=== PATIENT | female | born 1965 | race American Indian/Alaskan Native ===

== ENCOUNTER 2018-02-28 22:30 | Inpatient (IN) | payer OTHER ==
[2018-02-28] MEDS ORDERED: DUONEB *Not for PRN Use IH ONE (22:55)
--- NOTE | 2018-03-01 00:11 | XRay Report ---
FINAL REPORT EXAM: XR CHEST ROUTINE 2V HISTORY: chest congestion TECHNIQUE: Frontal and lateral views of the chest were obtained. PRIORS: None. FINDINGS: There are no focal consolidations to suggest pneumonia. Increased perihilar markings and slight increased lung volumes. No pneumothorax or large pleural effusion. Cardiac silhouette and mediastinal structures are unremarkable. No acute osseous abnormality identified. IMPRESSION: Radiographic findings suggestive of a viral process or reactive airway disease. No focal consolidation or pleural effusion.
[2018-03-01] MEDS ORDERED: DUONEB *Not for PRN Use IH ONE (04:30)
[2018-03-01] MEDS ORDERED: DECADRON IV ONE (04:30)
[2018-03-01 05:05] LABS: Basophils % (Auto) 0.7 % (0.0-1.8); Eosinophils # (Auto) 0.1 K/mm3 (0.0-0.4); Eosinophils % (Auto) 2.4 % (0.0-4.3); Hematocrit 37.9 % (30.3-42.9); Hemoglobin 12.9 gm/dl (10.1-14.3); Lymphocytes # (Auto) 1.7 K/mm3 (1.2-5.4); Lymphocytes % (Auto) 35.1 % (13.4-35.0); Mean Corpuscular HGB Conc 34 % (30-34); Mean Corpuscular Hemoglobin 29 pg (28-32); Mean Corpuscular Volume 85 fl (79-97); Monocytes # (Auto) 0.4 K/mm3 (0.0-0.8); Monocytes % (Auto) 9.3 % (0.0-7.3); Platelet Count 169 K/mm3 (140-440); Red Blood Count 4.44 M/mm3 (3.65-5.03); Red Cell Distribution Width 13.9 % (13.2-15.2)
[2018-03-01 05:23] LABS: INR 0.94 (0.87-1.13); Partial Thromboplastin Time 24.9 Sec. (24.2-36.6)
[2018-03-01 05:29] LABS: Alanine Aminotransferase 15 units/L (7-56); Albumin 3.9 g/dL (3.9-5); BUN/Creatinine Ratio 16; Blood Urea Nitrogen 11 mg/dL (7-17); Calcium 9.4 mg/dL (8.4-10.2); Hemolysis Index 5
[2018-03-01] MEDS ORDERED: PROVENTIL IH ONE ×2 (05:54→09:48)
[2018-03-01] MEDS ORDERED: MAGNESIUM SULFATE 2GM/50ML 2 GM/50 ML BAG IV ONE (05:54)
--- NOTE | 2018-03-01 06:02 | Emergency Department Report ---
<MAKEDA CRUZ - Last Filed: 03/01/18 07:51> ED Shortness of Breath HPI - General Chief Complaint: Dyspnea/Respdistress Stated Complaint: MATT Time Seen by Provider: 03/01/18 04:26 Source: patient Mode of arrival: Ambulatory Limitations: No Limitations - History of Present Illness Initial Comments: Patient is a 53-year-old -[place] female who presents for dyspnea respiratory distress cough and congestion worsening over the past 3 days with developing PND and activity intolerance wheezing not improving with albuterol inhaler there is no edema however patient cannot tolerate lying flat there is no nausea vomiting no back pain there's been no fall injury or trauma patient presented tonight as wheezing has become audible which cause greater concern. MD Complaint: shortness of breath, cough Onset/Timin -: days(s) Severity: moderate Pain Scale: 4 Consistency: constant Improves With: bronchodilators, upright position Worsens With: lying flat, exertion, coughing Known History Of: asthma, diabetes, other - Related Data Home Medications Medication Instructions Recorded Confirmed Last Taken Lisinopril/Hydrochlorothiazide 1 tab PO QDAY 03/01/18 03/01/18 02/28/18 [Zestoretic 20-25 mg] metFORMIN [Glucophage] 500 mg PO QDAY 03/01/18 03/01/18 02/28/18 Allergies Allergy/AdvReac Type Severity Reaction Status Date / Time No Known Allergies Allergy Verified 02/28/18 22:50 ED Review of Systems ROS: Stated complaint: MATT Other details as noted in HPI Constitutional: denies: chills, fever Eyes: denies: eye pain, eye discharge, vision change ENT: throat pain, congestion Respiratory: cough, orthopnea, shortness of breath, SOB with exertion, SOB at rest, wheezing. denies: stridor Cardiovascular: palpitations, dyspnea on exertion, paroxysmal nocturnal dyspnea Endocrine: no symptoms reported Gastrointestinal: denies: abdominal pain, nausea, diarrhea Genitourinary: denies: urgency, dysuria, discharge Musculoskeletal: denies: back pain, joint swelling, arthralgia Skin: denies: rash, lesions Neurological: denies: headache, weakness, paresthesias Psychiatric: denies: anxiety, depression Hematological/Lymphatic: denies: easy bleeding, easy bruising ED Past Medical Hx - Past Medical History Hx Hypertension: Yes Hx Diabetes: Yes - Surgical History Past Surgical History?: Yes Additional Surgical History: hysterectomy - Social History Smoking Status: Never Smoker Substance Use Type: None - Medications Home Medications: Home Medications Medication Instructions Recorded Confirmed Last Taken Type Lisinopril/Hydrochlorothiazide 1 tab PO QDAY 03/01/18 03/01/18 02/28/18 History [Zestoretic 20-25 mg] metFORMIN [Glucophage] 500 mg PO QDAY 03/01/18 03/01/18 02/28/18 History ED Physical Exam - General Limitations: No Limitations General appearance: alert, in no apparent distress - Head Head exam: Present: atraumatic, normocephalic - Eye Eye exam: Present: normal appearance, PERRL, EOMI Pupils: Present: normal accommodation - Expanded ENT Exam Expanded Mouth exam: Absent: trismus Throat exam: Positive: tonsillar erythema, tonsillomegaly. Negative: tonsillar exudate, R peritonsillar mass, L peritonsillar mass - Neck Neck exam: Present: full ROM. Absent: tenderness, meningismus, lymphadenopathy , thyromegaly - Expanded Neck Exam Expanded Neck exam: Absent: tenderness, midline deformity, anterior neck swelling, thyroid mass, carotid bruit, tracheal deviation - Respiratory Respiratory exam: Present: wheezes, rhonchi, chest wall tenderness, decreased breath sounds (bilat bases ) - Cardiovascular Cardiovascular Exam: Present: normal rhythm, tachycardia, normal heart sounds - GI/Abdominal GI/Abdominal exam: Present: soft. Absent: tenderness, rigid, bruit, hernia - Rectal Rectal exam: Present: deferred - Extremities Exam Extremities exam: Present: normal inspection - Back Exam Back exam: Present: normal inspection - Neurological Exam Neurological exam: Present: alert, oriented X3 - Psychiatric Psychiatric exam: Present: normal affect, normal mood - Skin Skin exam: Present: warm, dry, intact, normal color. Absent: rash ED Course Vital Signs 02/28/18 02/28/18 03/01/18 22:36 22:50 04:36 Temperature 99.4 F 99.4 F Pulse Rate 103 H 101 H 91 H Pulse Rate [ Anterior Bilateral Throughout] Respiratory 20 16 Rate Respiratory Rate [Anterior Bilateral Throughout] Blood Pressure 235/99 166/85 O2 Sat by Pulse 99 97 Oximetry 03/01/18 03/01/18 03/01/18 04:46 05:00 05:16 Temperature Pulse Rate 77 75 82 Pulse Rate [ Anterior Bilateral Throughout] Respiratory 13 14 17 Rate Respiratory Rate [Anterior Bilateral Throughout] Blood Pressure 189/83 189/83 189/83 O2 Sat by Pulse 100 100 100 Oximetry 03/01/18 03/01/18 03/01/18 05:30 05:46 06:00 Temperature Pulse Rate 84 86 85 Pulse Rate [ Anterior Bilateral Throughout] Respiratory 12 15 17 Rate Respiratory Rate [Anterior Bilateral Throughout] Blood Pressure 189/83 189/83 154/69 O2 Sat by Pulse 100 100 99 Oximetry 03/01/18 03/01/18 03/01/18 06:16 07:00 07:16 Temperature Pulse Rate 80 90 98 H Pulse Rate [ Anterior Bilateral Throughout] Respiratory 13 17 18 Rate Respiratory Rate [Anterior Bilateral Throughout] Blood Pressure 189/83 154/69 154/69 O2 Sat by Pulse 96 98 99 Oximetry 03/01/18 03/01/18 03/01/18 07:34 08:35 08:46 Temperature Pulse Rate Pulse Rate [ Anterior Bilateral Throughout] Respiratory 12 Rate Respiratory Rate [Anterior Bilateral Throughout] Blood Pressure 154/69 168/85 168/85 O2 Sat by Pulse 98 93 99 Oximetry 03/01/18 03/01/18 03/01/18 09:00 09:16 09:30 Temperature Pulse Rate Pulse Rate [ Anterior Bilateral Throughout] Respiratory 19 18 10 L Rate Respiratory Rate [Anterior Bilateral Throughout] Blood Pressure 143/73 168/85 168/85 O2 Sat by Pulse 97 95 92 Oximetry 03/01/18 03/01/18 03/01/18 09:46 09:59 10:00 Temperature Pulse Rate Pulse Rate [ 102 H 102 H Anterior Bilateral Throughout] Respiratory 17 9 L Rate Respiratory 18 18 Rate [Anterior Bilateral Throughout] Blood Pressure 143/73 139/76 O2 Sat by Pulse 98 100 Oximetry 03/01/18 03/01/18 10:16 10:30 Temperature Pulse Rate 96 H Pulse Rate [ Anterior Bilateral Throughout] Respiratory 23 12 Rate Respiratory Rate [Anterior Bilateral Throughout] Blood Pressure 139/76 139/76 O2 Sat by Pulse 97 97 Oximetry - Reevaluation(s) Reevaluation #1: dodelb x 2, 03/01/18 4:08 ED Medical Decision Making - Lab Data Result diagrams: 03/01/18 04:55 03/01/18 04:55 history of every Laboratory Tests 03/01/18 03/01/18 03/01/18 04:55 04:55 04:55 WBC 4.8 RBC 4.44 Hgb 12.9 Hct 37.9 MCV 85 MCH 29 MCHC 34 RDW 13.9 Plt Count 169 Lymph % (Auto) 35.1 H Johnston % (Auto) 9.3 H Eos % (Auto) 2.4 Baso % (Auto) 0.7 Lymph # 1.7 Johnston # 0.4 Eos # 0.1 Baso # 0.0 Seg Neutrophils % 52.5 Seg Neutrophils # 2.5 PT 13.0 INR 0.94 APTT 24.9 D-Dimer Sodium 136 L Potassium 4.0 Chloride 94.8 L Carbon Dioxide 29 Anion Gap 16 BUN 11 Creatinine 0.7 Estimated GFR > 60 BUN/Creatinine Ratio 16 Glucose 222 H Calcium 9.4 Magnesium Total Bilirubin 0.30 AST 15 ALT 15 Alkaline Phosphatase 98 Troponin T NT-Pro-B Natriuret Pep Total Protein 7.8 Albumin 3.9 Albumin/Globulin Ratio 1.0 03/01/18 03/01/18 03/01/18 04:55 04:55 04:55 WBC RBC Hgb Hct MCV MCH MCHC RDW Plt Count Lymph % (Auto) Johnston % (Auto) Eos % (Auto) Baso % (Auto) Lymph # Johnston # Eos # Baso # Seg Neutrophils % Seg Neutrophils # PT INR APTT D-Dimer 460 H Sodium Potassium Chloride Carbon Dioxide Anion Gap BUN Creatinine Estimated GFR BUN/Creatinine Ratio Glucose Calcium Magnesium 1.70 Total Bilirubin AST ALT Alkaline Phosphatase Troponin T < 0.010 NT-Pro-B Natriuret Pep 67.52 Total Protein Albumin Albumin/Globulin Ratio Symptoms - EKG Data EKG shows normal: sinus rhythm Rate: tachycardia - EKG Data When compared to previous EKG there are: previous EKG unavailable (NSTEMI ) - Radiology Data Radiology results: report reviewed, image reviewed Chest x-ray no infiltrates no opacities CTA is pending - Medical Decision Making Until his blood patient had neb treatments 5 , Decadron , 2 g of mag no improvement respirations 100% on room air at rest 89% with ambulation and activity chest x-ray clear. BNP on cold:67.5 D Dimer: 460: CTA pending, plan admit to hospitalist diagnosis shortness of breath asthma exacerbation category and bloody bowel movements. The weight thought . called at this time: [id number] will call back for patient handoff via Dr. Huber, discussed treatment plan with patient, patient verbalized agreement and understanding will same, pt is currentl a/o x 3 resting quitley with no resp distress is consultant surgery is 80 and emergency department basically Critical care attestation.: If time is entered above; I have spent that time in minutes in the direct care of this critically ill patient, excluding procedure time. ED Disposition Clinical Impression: SOB (shortness of breath), Asthma attacks lasting more than 24 hours Asthma exacerbation Qualifiers: Asthma severity: moderate Asthma persistence: persistent Qualified Code(s): J45.41 - Moderate persistent asthma with (acute) exacerbation Disposition: OP ADMIT IP TO THIS HOSP Is pt being admited?: Yes Does the pt Need Aspirin: No Condition: Stable Time of Disposition: 07:52 (awaiting hospitalist call back for hand off Dr Hidalgo) <DARLENE PRASAD - Last Filed: 03/05/18 18:56> ED Shortness of Breath HPI - History of Present Illness Quality: aching Context: recent URI Associated Symptoms: fever, cough Treatments Prior to Arrival: none - Related Data Home Oxygen Therapy: No ED Past Medical Hx - Family History Family history: hypertension ED Physical Exam - ENT ENT exam: Present: normal exam, normal orophraynx, mucous membranes moist - Expanded ENT Exam Expanded Ear exam: Present: normal external inspection Throat exam: Positive: normal inspection - Neurological Exam Neurological exam: Present: normal gait ED Course - Reevaluation(s) Reevaluation #2: 03/01/18 09:47 Patient remained stable. She is requesting a breathing treatment because she says she fell lately is phlegm stuck in her throat for albuterol ordered. Dr. Mcqueen on route to see patient. Vital signs are stable she is afebrile and she is still with widespread wheezing with some use of accessory muscle. He have to chest without any pulmonary embolism. Reevaluation #3: 03/01/18 11:[address] Hidalgo acquainted with the hospitalist and orders. She is comfortable and says she felt better after nebulizer treatment. Vital signs remained stable and she is afebrile. She still have been present for all lung galvin. Patient to be admitted to room 376. ED Medical Decision Making - Lab Data Result diagrams: 03/04/18 08:50 03/02/18 04:59 - Radiology Data CTA chest dictated by radiologist and report reviewed by myself and see final report. [facility] [address] [place] [address] Cat Scan Report Signed Patient: ALDA COLVIN MR#: [id number] : 1965 Acct:[id number] Age/Sex: 53 / F ADM Date: 02/28/18 Loc: ED Attending Dr: Ordering Physician: MAKEDA CRUZ NP Date of Service: 03/01/18 Procedure(s): CT angio chest Accession Number(s): [id number] cc: MAKEDA CRUZ NP CTA chest: History: Shortness of breath, elevated d-dimer. Findings: There is no endobronchial lesion identified. There is a mediastinal 2 cm mass at the aorticopulmonary window probably a lymph node or a cyst. No evidence of aortic aneurysm or pulmonary embolism. No pleural or pericardial effusion. Faint groundglass ill-defined density measuring 4 cm in diameter noted at the left lower lobe probably pneumonitis.. 1.2 cm diameter noncalcified nodule superior segment left lower lobe. Seen on series 3 image 86. Impression: No evidence of pulmonary embolism. Additional findings as detailed above. Transcribed By: PTP Dictated By: JUSTINO VIZCARRA MD Electronically Authenticated By: JUSTINO VIZCARRA MD Signed Date/Time: 03/01/18812 DD/ 5 TD/TT: 03/01/18812
--- NOTE | 2018-03-01 08:31 | Cat Scan Report ---
CTA chest: History: Shortness of breath, elevated d-dimer. Findings: There is no endobronchial lesion identified. There is a mediastinal 2 cm mass at the aorticopulmonary window probably a lymph node or a cyst. No evidence of aortic aneurysm or pulmonary embolism. No pleural or pericardial effusion. Faint groundglass ill-defined density measuring 4 cm in diameter noted at the left lower lobe probably pneumonitis.. 1.2 cm diameter noncalcified nodule superior segment left lower lobe. Seen on series 3 image 86. Impression: No evidence of pulmonary embolism. Additional findings as detailed above.
[2018-03-01] MEDS ORDERED: TYLENOL PO PRN (10:42)
[2018-03-01] MEDS ORDERED: SODIUM CHLORIDE FLUSH SYRINGE 10 ML IV PRN (10:42)
[2018-03-01] MEDS ORDERED: ZOFRAN IV PRN (10:42)
--- NOTE | 2018-03-01 10:51 | History and Physical Report ---
History of Present Illness Date of examination: 03/01/18 Date of admission: 03/01/18 Chief complaint: SOB, cough History of present illness: Patient is a 53-year-old -[place] female who has a history of asthma and diabetes mellitus, has not get any albuterol medications for the past 3 years started having cough with slight shortness of breath with past 3 days ago. This was associated with wheezing, progressively worsening shortness of breath. She took some [id number] medications with no improvement in symptoms. She then presented to the emergency department with respiratory distress and continues coughing. Bronchodilators were given with IV soda Medrol. Symptoms persisted. Blood sugar was found to be 222 in the emergency department. CT scan of the chest was unremarkable for any pulmonary embolism. BNP was normal at 67.5. Admission was therefore requested. Patient denies any fever. No chest pain. No nausea no vomiting. No chills. No orthopnea or PND. Past History Past Medical History: diabetes, other (asthma) Past Surgical History: hysterectomy, Other (breast reduction) Social history: denies: smoking, alcohol abuse, prescription drug abuse Family history: other (daughter with asthma) Medications and Allergies Allergies Allergy/AdvReac Type Severity Reaction Status Date / Time No Known Allergies Allergy Verified 02/28/18 22:50 Home Medications Medication Instructions Recorded Confirmed Last Taken Type Lisinopril/Hydrochlorothiazide 1 tab PO QDAY 03/01/18 03/01/18 02/28/18 History [Zestoretic 20-25 mg] metFORMIN [Glucophage] 500 mg PO QDAY 03/01/18 03/01/18 02/28/18 History Active Meds: Active Medications Acetaminophen (Tylenol) 650 mg PO Q4H PRN PRN Reason: Pain MILD(1-3)/Fever >100.5/NEELY Albuterol/Ipratropium (Duoneb *Not For Prn Use*) 1 ampul IH QIDRT [facility] Budesonide (Pulmicort) 0.5 mg IH Q12HRT [facility] Enoxaparin Sodium (Lovenox) 30 mg SUB-Q QDAY [facility] Levofloxacin/Dextrose (Levaquin 750mg/150ml) 750 mg in 150 mls @ 100 mls/hr IV Q24HR ALEX; Protocol Methylprednisolone Sodium (Succinate 80 mg/ Dextrose) 250 mls @ 12 mls/hr IV Q6H [facility] Stop: 03/01/18 16:59 Metformin HCl (Glucophage) 500 mg PO QDAY [facility] Miscellaneous Medication (Lisinopril/Hydrochlorothiazide [Zestoretic 20-25 Mg]) 1 tab PO QDAY [facility] Ondansetron HCl (Zofran) 4 mg IV Q8H PRN PRN Reason: Nausea And Vomiting Sodium Chloride (Sodium Chloride Flush Syringe 10 Ml) 10 ml IV BID [facility] Sodium Chloride (Sodium Chloride Flush Syringe 10 Ml) 10 ml IV PRN PRN PRN Reason: LINE FLUSH Review of systems Constitutional: Well Nouridhed and Well developed. Head: NC/ AT Eyes: Denies any visual impairments. No discharge from the eyes Nose: Denies any rhinorrhea or epistaxis Throats: Denies any post nasal drainage. Ears: Denies any hearing deficits Cardiovascular system: Denies any chest pain, shortness of breath, orthopnea, paroxysmal nocturnal dyspnea, or palpitation. Respiratory system: Has cough with shortness of breath, difficulty in breathing , wheezing, pleuritic chest pain, Gastrointestinal system: Denies any abdominal pain, nausea vomiting, hematemesis or melena. Neurological system: Denies any headache, slurred speech, facial droop, lateralizing weakness Genitalia system: Denies any dysuria, urinary frequency or urgency, urethral discharge Skin: No rashes, hyperpigmented spots. Hematological: Denies any cervical tenderness hemorrhages or petechia. Immunological: Denies any multiple septic spots, Lymphatic: Denies any generalized lymphadenopathy. Endocrine: Denies any polyuria, polydipsia, polyphagia. No heat or cold intolerance. Musculoskeletal system: No joint pain or swelling. Psych: No visual, tactile, auditory or hallucination Exam - Physical Exam Narrative exam: Constitutional: Obese well-developed. Head: Normocephalic atraumatic Eyes: Pupils are equal round and reactive to light Nose: No enlarged turbinates, no septal deviation. Mouth: Moist mucous membranes. Neck: Supple no thyromegaly. No bruit. No JVD Heart: Regular rate and rhythm, S1-S2 abnormal. No rubs murmurs or gallop Lungs: Decreased breath sounds bilaterally with expiratory wheeze. no rales or rhonchi Abdomen: Soft, nontender. Bowel sound are present. Extremities: No edema no cyanosis and no clubbing. Neuro: Alert oriented Oriented x3. No focal sensory or motor deficit. Skin: No rashes no hyperemic spots Psychiatry: Euthymic. Calm. - Constitutional Vitals: Temp Pulse Resp BP Pulse Ox 99.4 F 102 H 18 154/69 98 02/28/18 22:50 03/01/18 10:00 03/01/18 10:00 03/01/18 07:00 03/01/18 07:00 Results - Labs CBC & Chem 7: 03/01/18 04:55 03/01/18 04:55 Labs: Abnormal lab results 03/01/18 03/01/18 03/01/18 Range/Units 04:55 04:55 04:55 Lymph % (Auto) 35.1 H (13.4-35.0) % [place] % (Auto) 9.3 H (0.0-7.3) % D-Dimer 460 H (0-234) ng/mlDDU Sodium 136 L (137-145) mmol/L Chloride 94.8 L (98-107) mmol/L Glucose 222 H (65-100) mg/dL - Imaging and Cardiology Chest x-ray: report reviewed CT scan - chest: report reviewed Assessment and Plan Patient is a 53-year-old -[place] female who has a history of asthma and diabetes mellitus, has not get any albuterol medications for the past 3 years started having cough with slight shortness of breath with past 3 days ago. This was associated with wheezing, progressively worsening shortness of breath. She took some [id number] medications with no improvement in symptoms. She then presented to the emergency department with respiratory distress and continues coughing. Bronchodilators were given with IV soda Medrol. Symptoms persisted. Blood sugar was found to be 222 in the emergency department. CT scan of the chest was unremarkable for any pulmonary embolism. BNP was normal at 67.5. Admission was therefore requested. Patient denies any fever. No chest pain. No nausea no vomiting. No chills. No orthopnea or PND. - Asthma exacerbation Comments patient on DuoNeb, IV symmetrica, Pulmicort IV Solu-Medrol - Acute bronchitis Bronchodilators, Hydromet - Diabetes mellitus Obtain A1c High-dose sliding scale Consistent carbohydrate diet - Morbid obesity With management counseling -DVT prophylaxis with Lovenox and daily Pepcid - Disposition anticipate improvement in her cough wheezing and shortness of breath with bronchodilator treatment the next 2-3 days Weaned off IV Solu-Medrol on discharge home
[2018-03-01] MEDS ORDERED: LOVENOX SUB-Q SCH (11:00)
[2018-03-01] MEDS ORDERED: NON-FORMULARY (Lisinopril/Hydrochlorothiazide [Zestoretic 20-25 Mg] 1 TAB) PO SCH (11:00)
[2018-03-01] MEDS ORDERED: HCTZ ONE (11:50)
[2018-03-01] MEDS ORDERED: ZESTRIL ONE (11:51)
[2018-03-01] MEDS: LEVAQUIN 750MG/150ML 750 MG/150 ML BAG IV SCH (12:36)
[2018-03-01] MEDS: GLUCOPHAGE PO SCH (12:37)
[2018-03-01] MEDS: LOVENOX SUB-Q SCH (12:38)
[2018-03-01] MEDS ORDERED: PROVENTIL IH PRN (12:56)
[2018-03-01] MEDS ORDERED: SOLU MEDROL IV SCH (13:00)
[2018-03-01] MEDS ORDERED: D5W IV SCH (13:00)
[2018-03-01] MEDS: DUONEB *Not for PRN Use IH SCH ×3 (15:05→19:56)
[2018-03-01] MEDS: ZESTRIL PO SCH (15:27)
[2018-03-01] MEDS: HCTZ PO SCH (15:28)
[2018-03-01] MEDS: PULMICORT IH SCH ×2 (19:55)
[2018-03-01] MEDS: SODIUM CHLORIDE FLUSH SYRINGE 10 ML IV SCH (23:17)
[2018-03-01] MEDS: HumaLOG SUB-Q SCH (23:17)
[2018-03-02 05:15] LABS: Basophils % (Auto) 0.3 % (0.0-1.8); Hematocrit 37.5 % (30.3-42.9); Hemoglobin 12.6 gm/dl (10.1-14.3); Lymphocytes # (Auto) 0.6 K/mm3 (1.2-5.4); Lymphocytes % (Auto) 8.5 % (13.4-35.0); Mean Corpuscular HGB Conc 34 % (30-34); Mean Corpuscular Hemoglobin 29 pg (28-32); Mean Corpuscular Volume 85 fl (79-97); Monocytes # (Auto) 0.2 K/mm3 (0.0-0.8); Platelet Count 162 K/mm3 (140-440); Red Cell Distribution Width 13.8 % (13.2-15.2)
[2018-03-02] MEDS: DUONEB *Not for PRN Use IH SCH ×4 (07:26→19:49)
[2018-03-02] MEDS: PULMICORT IH SCH ×2 (07:26→19:49)
[2018-03-02 07:37] LABS: Alanine Aminotransferase 15 units/L (7-56); Albumin 3.8 g/dL (3.9-5); BUN/Creatinine Ratio 19; Blood Urea Nitrogen 15 mg/dL (7-17); Calcium 9.7 mg/dL (8.4-10.2); Hemolysis Index 1
[2018-03-02] MEDS: LOVENOX SUB-Q SCH (09:18)
[2018-03-02] MEDS: HCTZ PO SCH (09:19)
[2018-03-02] MEDS: GLUCOPHAGE PO SCH (09:19)
[2018-03-02] MEDS: SODIUM CHLORIDE FLUSH SYRINGE 10 ML IV SCH ×2 (09:20→21:41)
[2018-03-02] MEDS: ZESTRIL PO SCH (09:20)
[2018-03-02] MEDS: HumaLOG SUB-Q SCH ×4 (09:21→21:51)
[2018-03-02] MEDS: LEVAQUIN 750MG/150ML 750 MG/150 ML BAG IV SCH (09:22)
[2018-03-02] MEDS ORDERED: PNEUMOVAX 23 IM ONE (12:00)
--- NOTE | 2018-03-02 12:25 | Progress Note ---
Assessment and Plan Assessment and plan: - Acute Asthma exacerbation Cont. on DuoNeb, Solumedrol IV, Pulmicort - Acute bronchitis Bronchodilators, Levaquin - Diabetes mellitus F/U A1c High-dose sliding scale Consistent carbohydrate diet - Morbid obesity Weight management counseling -DVT/GI prophylaxis with Lovenox and daily Pepcid History Interval history: Pt still c/o cough and SOB Hospitalist Physical - Constitutional Vitals: Temp Pulse Resp BP Pulse Ox 97.9 F 68 18 120/56 98 03/02/18 05:29 03/02/18 09:20 03/02/18 05:29 03/02/18 05:29 03/02/18 05:29 General appearance: Present: no acute distress, well-nourished - EENT Eyes: Present: PERRL, EOM intact ENT: hearing intact, clear oral mucosa, dentition normal - Neck Neck: Present: supple, normal ROM - Respiratory Respiratory effort: normal Respiratory: bilateral: diminished, rhonchi, wheezing - Cardiovascular Rhythm: regular Heart Sounds: Present: S1 & S2. Absent: gallop, rub - Extremities Extremities: no ischemia, No edema, Full ROM - Abdominal General gastrointestinal: soft, non-tender, non-distended, normal bowel sounds - Integumentary Integumentary: Present: clear, warm, dry - Neurologic Neurologic: CNII-XII intact, moves all extremities Results - Labs CBC & Chem 7: 03/02/18 04:59 03/02/18 04:59 Labs: Laboratory Last Values WBC 6.9 K/mm3 (4.5-11.0) 03/02/18 04:59 RBC 4.40 M/mm3 (3.65-5.03) 03/02/18 04:59 Hgb 12.6 gm/dl (10.1-14.3) 03/02/18 04:59 Hct 37.5 % (30.3-42.9) 03/02/18 04:59 MCV 85 fl (79-97) 03/02/18 04:59 MCH 29 pg (28-32) 03/02/18 04:59 MCHC 34 % (30-34) 03/02/18 04:59 RDW 13.8 % (13.2-15.2) 03/02/18 04:59 Plt Count 162 K/mm3 (140-440) 03/02/18 04:59 Lymph % (Auto) 8.5 % (13.4-35.0) L 03/02/18 04:59 Ross % (Auto) 3.0 % (0.0-7.3) 03/02/18 04:59 Eos % (Auto) 0.0 % (0.0-4.3) 03/02/18 04:59 Baso % (Auto) 0.3 % (0.0-1.8) 03/02/18 04:59 Lymph # 0.6 K/mm3 (1.2-5.4) L 03/02/18 04:59 Ross # 0.2 K/mm3 (0.0-0.8) 03/02/18 04:59 Eos # 0.0 K/mm3 (0.0-0.4) 03/02/18 04:59 Baso # 0.0 K/mm3 (0.0-0.1) 03/02/18 04:59 Seg Neutrophils % 88.2 % (40.0-70.0) H 03/02/18 04:59 Seg Neutrophils # 6.1 K/mm3 (1.8-7.7) 03/02/18 04:59 PT 13.0 Sec. (12.2-14.9) 03/01/18 04:55 INR 0.94 (0.87-1.13) 03/01/18 04:55 APTT 24.9 Sec. (24.2-36.6) 03/01/18 04:55 D-Dimer 460 ng/mlDDU (0-234) H 03/01/18 04:55 Sodium 136 mmol/L (137-145) L 03/02/18 04:59 Potassium 4.9 mmol/L (3.6-5.0) D 03/02/18 04:59 Chloride 96.4 mmol/L (98-107) L 03/02/18 04:59 Carbon Dioxide 26 mmol/L (22-30) 03/02/18 04:59 Anion Gap 19 mmol/L 03/02/18 04:59 BUN 15 mg/dL (7-17) 03/02/18 04:59 Creatinine 0.8 mg/dL (0.7-1.2) 09/08/18 04:59 Estimated GFR > 60 ml/min 03/02/18 04:59 BUN/Creatinine Ratio 19 % 03/02/18 04:59 Glucose 377 mg/dL (65-100) H 03/02/18 04:59 POC Glucose 385 (70-105) H 03/01/18 21:32 Calcium 9.7 mg/dL (8.4-10.2) 03/02/18 04:59 Magnesium 1.70 mg/dL (1.7-2.3) 03/01/18 04:55 Total Bilirubin 0.20 mg/dL (0.1-1.2) 03/02/18 04:59 AST 13 units/L (5-40) 03/02/18 04:59 ALT 15 units/L (7-56) 03/02/18 04:59 Alkaline Phosphatase 99 units/L (35-129) 03/02/18 04:59 Troponin T < 0.010 ng/mL (0.00-0.029) 03/01/18 04:55 NT-Pro-B Natriuret Pep 67.52 pg/mL (0-900) 03/01/18 04:55 Total Protein 7.3 g/dL (6.3-8.2) 03/02/18 04:59 Albumin 3.8 g/dL (3.9-5) L 03/02/18 04:59 Albumin/Globulin Ratio 1.1 % 03/02/18 04:59
[2018-03-03 07:22] LABS: Basophils % (Auto) 0.5 % (0.0-1.8); Eosinophils % (Auto) 0.1 % (0.0-4.3); Hematocrit 37.8 % (30.3-42.9); Hemoglobin 12.5 gm/dl (10.1-14.3); Lymphocytes # (Auto) 1.7 K/mm3 (1.2-5.4); Lymphocytes % (Auto) 19.8 % (13.4-35.0); Mean Corpuscular HGB Conc 33 % (30-34); Mean Corpuscular Hemoglobin 29 pg (28-32); Mean Corpuscular Volume 86 fl (79-97); Monocytes # (Auto) 0.5 K/mm3 (0.0-0.8); Monocytes % (Auto) 6.2 % (0.0-7.3); Platelet Count 162 K/mm3 (140-440); Red Blood Count 4.39 M/mm3 (3.65-5.03); Red Cell Distribution Width 13.9 % (13.2-15.2)
[2018-03-03] MEDS: PULMICORT IH SCH ×2 (08:21→21:05)
[2018-03-03] MEDS: DUONEB *Not for PRN Use IH SCH ×4 (08:22→21:05)
[2018-03-03] MEDS: HumaLOG SUB-Q SCH ×4 (08:55→22:10)
[2018-03-03] MEDS: GLUCOPHAGE PO SCH (08:56)
[2018-03-03] MEDS: LEVAQUIN 750MG/150ML 750 MG/150 ML BAG IV SCH (09:00)
[2018-03-03] MEDS: LOVENOX SUB-Q SCH (09:00)
[2018-03-03] MEDS: HCTZ PO SCH (10:00)
[2018-03-03] MEDS: ZESTRIL PO SCH (10:00)
[2018-03-03] MEDS: SODIUM CHLORIDE FLUSH SYRINGE 10 ML IV SCH ×2 (10:00→21:38)
--- NOTE | 2018-03-03 16:19 | Progress Note ---
Assessment and Plan - Patient Problems (1) Asthma attacks lasting more than 24 hours Current Visit: Yes Status: Acute (2) Asthma exacerbation Current Visit: Yes Status: Acute Qualifiers: Asthma severity: moderate Asthma persistence: persistent Qualified Code(s ): J45.41 - Moderate persistent asthma with (acute) exacerbation Plan to address problem: Patient with current asthma exacerbation. Still wheezing significantly decreased breath sounds and hypoxemia. Likely exacerbated by level obesity. Obtained to treat for acute bronchitis with IV antibiotics. Nebulizer treatment steroids as well. (3) Diabetes 1.5, managed as type 2 Current Visit: Yes Status: Acute Plan to address problem: At present we'll continue sliding scale insulin followed Accu-Cheks and titrate accordingly. (4) Morbid obesity Current Visit: Yes Status: Acute Plan to address problem: Counseled about its effect on breathing and diabetes. History Interval history: Patient still states she has some difficulty breathing. Wheezing nonproductive cough. Hospitalist Physical - Constitutional Vitals: Temp Pulse Resp BP Pulse Ox 97.4 F L 80 16 117/76 96 03/03/18 12:28 03/03/18 12:28 03/03/18 12:28 03/03/18 12:28 03/03/18 12:28 General appearance: Present: no acute distress, well-nourished - EENT Eyes: Present: PERRL, EOM intact ENT: hearing intact, clear oral mucosa, dentition normal - Neck Neck: Present: supple, normal ROM - Respiratory Respiratory: bilateral: wheezing (bilateral wheezing few rhonchi) - Cardiovascular Rhythm: regular Heart Sounds: Present: S1 & S2 - Extremities Extremities: no ischemia, pulses intact, pulses symmetrical, No edema, normal temperature Peripheral Pulses: within normal limits - Abdominal General gastrointestinal: soft, non-tender, non-distended, other (obese), no normal bowel sounds, no hypoactive bowel sounds, no hepatomegaly, no splenomegaly - Integumentary Integumentary: Present: clear, warm, dry - Psychiatric Psychiatric: appropriate mood/affect, intact judgment & insight, memory intact - Neurologic Neurologic: CNII-XII intact, moves all extremities Results - Labs CBC & Chem 7: 03/03/18 06:58 03/02/18 04:59 Labs: Laboratory Last Values WBC 8.7 K/mm3 (4.5-11.0) 03/03/18 06:58 RBC 4.39 M/mm3 (3.65-5.03) 03/03/18 06:58 Hgb 12.5 gm/dl (10.1-14.3) 03/03/18 06:58 Hct 37.8 % (30.3-42.9) 03/03/18 06:58 MCV 86 fl (79-97) 03/03/18 06:58 MCH 29 pg (28-32) 03/03/18 06:58 MCHC 33 % (30-34) 03/03/18 06:58 RDW 13.9 % (13.2-15.2) 03/03/18 06:58 Plt Count 162 K/mm3 (140-440) 03/03/18 06:58 Lymph % (Auto) 19.8 % (13.4-35.0) 03/03/18 06:58 [place] % (Auto) 6.2 % (0.0-7.3) 03/03/18 06:58 Eos % (Auto) 0.1 % (0.0-4.3) 03/03/18 06:58 Baso % (Auto) 0.5 % (0.0-1.8) 03/03/18 06:58 Lymph # 1.7 K/mm3 (1.2-5.4) 03/03/18 06:58 [place] # 0.5 K/mm3 (0.0-0.8) 03/03/18 06:58 Eos # 0.0 K/mm3 (0.0-0.4) 03/03/18 06:58 Baso # 0.0 K/mm3 (0.0-0.1) 03/03/18 06:58 Seg Neutrophils % 73.4 % (40.0-70.0) H 03/03/18 06:58 Seg Neutrophils # 6.4 K/mm3 (1.8-7.7) 03/03/18 06:58 PT 13.0 Sec. (12.2-14.9) 03/01/18 04:55 INR 0.94 (0.87-1.13) 03/01/18 04:55 APTT 24.9 Sec. (24.2-36.6) 03/01/18 04:55 D-Dimer 460 ng/mlDDU (0-234) H 03/01/18 04:55 Sodium 136 mmol/L (137-145) L 03/02/18 04:59 Potassium 4.9 mmol/L (3.6-5.0) D 03/02/18 04:59 Chloride 96.4 mmol/L (98-107) L 03/02/18 04:59 Carbon Dioxide 26 mmol/L (22-30) 03/02/18 04:59 Anion Gap 19 mmol/L 03/02/18 04:59 BUN 15 mg/dL (7-17) 03/02/18 04:59 Creatinine 0.8 mg/dL (0.7-1.2) 03/02/18 04:59 Estimated GFR > 60 ml/min 03/02/18 04:59 BUN/Creatinine Ratio 19 % 03/02/18 04:59 Glucose 377 mg/dL (65-100) H 03/02/18 04:59 POC Glucose 212 (70-105) H 03/03/18 11:00 Calcium 9.7 mg/dL (8.4-10.2) 03/02/18 04:59 Magnesium 1.70 mg/dL (1.7-2.3) 03/01/18 04:55 Total Bilirubin 0.20 mg/dL (0.1-1.2) 03/02/18 04:59 AST 13 units/L (5-40) 03/02/18 04:59 ALT 15 units/L (7-56) 03/02/18 04:59 Alkaline Phosphatase 99 units/L (35-129) 03/02/18 04:59 Troponin T < 0.010 ng/mL (0.00-0.029) 03/01/18 04:55 NT-Pro-B Natriuret Pep 67.52 pg/mL (0-900) 03/01/18 04:55 Total Protein 7.3 g/dL (6.3-8.2) 03/02/18 04:59 Albumin 3.8 g/dL (3.9-5) L 03/02/18 04:59 Albumin/Globulin Ratio 1.1 % 03/02/18 04:59
[2018-03-04] MEDS: GLUCOPHAGE PO SCH (08:48)
[2018-03-04] MEDS: HumaLOG SUB-Q SCH ×4 (08:49→22:20)
[2018-03-04] MEDS: PULMICORT IH SCH ×2 (09:10→19:21)
[2018-03-04] MEDS: DUONEB *Not for PRN Use IH SCH ×4 (09:10→19:21)
[2018-03-04 09:21] LABS: Basophils % (Auto) 0.7 % (0.0-1.8); Eosinophils # (Auto) 0.1 K/mm3 (0.0-0.4); Eosinophils % (Auto) 1.4 % (0.0-4.3); Hematocrit 39.2 % (30.3-42.9); Hemoglobin 13.1 gm/dl (10.1-14.3); Lymphocytes # (Auto) 2.2 K/mm3 (1.2-5.4); Lymphocytes % (Auto) 42.1 % (13.4-35.0); Mean Corpuscular HGB Conc 33 % (30-34); Mean Corpuscular Hemoglobin 29 pg (28-32); Mean Corpuscular Volume 86 fl (79-97); Monocytes # (Auto) 0.3 K/mm3 (0.0-0.8); Monocytes % (Auto) 6.6 % (0.0-7.3); Platelet Count 163 K/mm3 (140-440); Red Blood Count 4.55 M/mm3 (3.65-5.03)
[2018-03-04] MEDS: LEVAQUIN 750MG/150ML 750 MG/150 ML BAG IV SCH (10:52)
[2018-03-04] MEDS: LEVAQUIN PO SCH (10:59)
[2018-03-04] MEDS: HCTZ PO SCH (10:59)
[2018-03-04] MEDS: ZESTRIL PO SCH (10:59)
[2018-03-04] MEDS: SODIUM CHLORIDE FLUSH SYRINGE 10 ML IV SCH (11:00)
[2018-03-04] MEDS: LOVENOX SUB-Q SCH (11:00)
--- NOTE | 2018-03-04 12:57 | Progress Note ---
Assessment and Plan - Patient Problems (1) Asthma attacks lasting more than 24 hours Current Visit: Yes Status: Acute (2) Asthma exacerbation Current Visit: Yes Status: Acute Qualifiers: Asthma severity: moderate Asthma persistence: persistent Qualified Code(s ): J45.41 - Moderate persistent asthma with (acute) exacerbation Plan to address problem: Patient still has significant limitations from her asthma. We'll continue current empiric antibiotics continue Solu-Medrol and nebulizers every 4 hours. We'll add Hycodan cough syrup today. (3) Diabetes 1.5, managed as type 2 Current Visit: Yes Status: Acute Plan to address problem: At present we'll continue sliding scale insulin followed Accu-Cheks and titrate accordingly. (4) Morbid obesity Current Visit: Yes Status: Acute Plan to address problem: Counseled about its effect on breathing and diabetes. History Interval history: Patient still having significant wheezing. Patient is better but still has not turned around. Anticipate improvement in the a.m. Hospitalist Physical - Constitutional Vitals: Temp Pulse Resp BP Pulse Ox 97.8 F 77 16 106/74 94 03/04/18 12:17 03/04/18 12:17 03/04/18 12:17 03/04/18 12:17 03/04/18 12:17 General appearance: Present: no acute distress, well-nourished - EENT Eyes: Present: PERRL, EOM intact ENT: hearing intact, clear oral mucosa, dentition normal, no oropharyngeal erythema, no poor dentition, no thrush - Neck Neck: Present: supple, normal ROM - Respiratory Respiratory effort: normal Respiratory: bilateral: rhonchi, wheezing - Cardiovascular Rhythm: other (tachycardia) Heart Sounds: Present: S1 & S2 - Extremities Extremities: no ischemia, pulses intact, pulses symmetrical, No edema, normal temperature, normal color, Full ROM Peripheral Pulses: within normal limits - Abdominal General gastrointestinal: soft, non-tender, non-distended, normal bowel sounds, other (obese) - Psychiatric Psychiatric: appropriate mood/affect, intact judgment & insight - Neurologic Neurologic: CNII-XII intact, focal deficits Results - Labs CBC & Chem 7: 03/04/18 08:50 03/02/18 04:59 Labs: Laboratory Last Values WBC 5.3 K/mm3 (4.5-11.0) 03/04/18 08:50 RBC 4.55 M/mm3 (3.65-5.03) 03/04/18 08:50 Hgb 13.1 gm/dl (10.1-14.3) 03/04/18 08:50 Hct 39.2 % (30.3-42.9) 03/04/18 08:50 MCV 86 fl (79-97) 03/04/18 08:50 MCH 29 pg (28-32) 03/04/18 08:50 MCHC 33 % (30-34) 03/04/18 08:50 RDW 14.0 % (13.2-15.2) 03/04/18 08:50 Plt Count 163 K/mm3 (140-440) 03/04/18 08:50 Lymph % (Auto) 42.1 % (13.4-35.0) H 03/04/18 08:50 [place] % (Auto) 6.6 % (0.0-7.3) 03/04/18 08:50 Eos % (Auto) 1.4 % (0.0-4.3) 03/04/18 08:50 Baso % (Auto) 0.7 % (0.0-1.8) 03/04/18 08:50 Lymph # 2.2 K/mm3 (1.2-5.4) 03/04/18 08:50 [place] # 0.3 K/mm3 (0.0-0.8) 03/04/18 08:50 Eos # 0.1 K/mm3 (0.0-0.4) 03/04/18 08:50 Baso # 0.0 K/mm3 (0.0-0.1) 03/04/18 08:50 Seg Neutrophils % 49.2 % (40.0-70.0) 03/04/18 08:50 Seg Neutrophils # 2.6 K/mm3 (1.8-7.7) 03/04/18 08:50 PT 13.0 Sec. (12.2-14.9) 03/01/18 04:55 INR 0.94 (0.87-1.13) 03/01/18 04:55 APTT 24.9 Sec. (24.2-36.6) 03/01/18 04:55 D-Dimer 460 ng/mlDDU (0-234) H 03/01/18 04:55 Sodium 136 mmol/L (137-145) L 03/02/18 04:59 Potassium 4.9 mmol/L (3.6-5.0) D 03/02/18 04:59 Chloride 96.4 mmol/L (98-107) L 03/02/18 04:59 Carbon Dioxide 26 mmol/L (22-30) 03/02/18 04:59 Anion Gap 19 mmol/L 03/02/18 04:59 BUN 15 mg/dL (7-17) 03/02/18 04:59 Creatinine 0.8 mg/dL (0.7-1.2) 03/02/18 04:59 Estimated GFR > 60 ml/min 03/02/18 04:59 BUN/Creatinine Ratio 19 % 03/02/18 04:59 Glucose 377 mg/dL (65-100) H 03/02/18 04:59 POC Glucose 212 (70-105) H 03/04/18 10:58 Calcium 9.7 mg/dL (8.4-10.2) 03/02/18 04:59 Magnesium 1.70 mg/dL (1.7-2.3) 03/01/18 04:55 Total Bilirubin 0.20 mg/dL (0.1-1.2) 03/02/18 04:59 AST 13 units/L (5-40) 03/02/18 04:59 ALT 15 units/L (7-56) 03/02/18 04:59 Alkaline Phosphatase 99 units/L (35-129) 03/02/18 04:59 Troponin T < 0.010 ng/mL (0.00-0.029) 03/01/18 04:55 NT-Pro-B Natriuret Pep 67.52 pg/mL (0-900) 03/01/18 04:55 Total Protein 7.3 g/dL (6.3-8.2) 03/02/18 04:59 Albumin 3.8 g/dL (3.9-5) L 03/02/18 04:59 Albumin/Globulin Ratio 1.1 % 03/02/18 04:59
[2018-03-04] MEDS: HYDROMET PO PRN ×2 (16:11→22:19)
[2018-03-05] MEDS: SODIUM CHLORIDE FLUSH SYRINGE 10 ML IV SCH ×3 (07:36→22:09)
[2018-03-05] MEDS: PULMICORT IH SCH ×2 (08:15→20:00)
[2018-03-05] MEDS: DUONEB *Not for PRN Use IH SCH ×4 (08:15→20:00)
[2018-03-05] MEDS: GLUCOPHAGE PO SCH (08:47)
[2018-03-05] MEDS: HYDROMET PO PRN (08:47)
[2018-03-05] MEDS: HumaLOG SUB-Q SCH ×4 (08:48→22:09)
--- NOTE | 2018-03-05 08:53 | Progress Note ---
Assessment and Plan Assessment and plan: 53-year-old female with medical history significant for asthma, hypertension and diabetes presented for the complaints of shortness of breath COPD exacerbation - Patient is on IV Levaquin, DuoNeb's and oxygen support but patient was not Solu-Medrol - I added Solu-Medrol this morning Diabetes mellitus with hyperglycemia -Continue metformin and sliding scale insulin - Accu-Chek, ADA date Morbid obesity - Counseled about diet and exercise Hypertension - On the low side of normal - Held lisinopril for now DVT prophylaxis - On Lovenox Disposition - Continue inpatient care, will monitor if the patient showed improvement with Solu-Medrol History Interval history: Patient is complaining of breath, wheezing Hospitalist Physical - Physical exam Narrative exam: Not in cardiopulmonary distress. The patient is morbidly obese. Vital signs as documented. Head exam is unremarkable. No scleral icterus . Neck is without jugular venous distension, thyromegaly, or carotid bruits. Lungs wheezing got over the chest. Cardiac exam reveals regular rate and Rhythm. First and second heart sounds normal. No murmurs, rubs or gallops. Abdominal exam reveals normal bowel sounds, no masses, no organomegaly and no aortic enlargement. Extremities are nonedematous and both femoral and pedal pulses are normal. WEIGHT ANALYST: Alert and oriented 3. No focal weakness. - Constitutional Vitals: Temp Pulse Resp BP Pulse Ox 98.2 F 78 18 115/70 100 03/05/18 05:13 03/05/18 08:35 03/05/18 08:35 03/05/18 05:13 03/05/18 05:13 General appearance: Present: no acute distress, well-nourished Results - Labs CBC & Chem 7: 03/04/18 08:50 03/02/18 04:59 Labs: Laboratory Last Values WBC 5.3 K/mm3 (4.5-11.0) 03/04/18 08:50 RBC 4.55 M/mm3 (3.65-5.03) 03/04/18 08:50 Hgb 13.1 gm/dl (10.1-14.3) 03/04/18 08:50 Hct 39.2 % (30.3-42.9) 03/04/18 08:50 MCV 86 fl (79-97) 03/04/18 08:50 MCH 29 pg (28-32) 03/04/18 08:50 MCHC 33 % (30-34) 03/04/18 08:50 RDW 14.0 % (13.2-15.2) 03/04/18 08:50 Plt Count 163 K/mm3 (140-440) 03/04/18 08:50 Lymph % (Auto) 42.1 % (13.4-35.0) H 03/04/18 08:50 [place] % (Auto) 6.6 % (0.0-7.3) 03/04/18 08:50 Eos % (Auto) 1.4 % (0.0-4.3) 03/04/18 08:50 Baso % (Auto) 0.7 % (0.0-1.8) 03/04/18 08:50 Lymph # 2.2 K/mm3 (1.2-5.4) 03/04/18 08:50 [place] # 0.3 K/mm3 (0.0-0.8) 03/04/18 08:50 Eos # 0.1 K/mm3 (0.0-0.4) 03/04/18 08:50 Baso # 0.0 K/mm3 (0.0-0.1) 03/04/18 08:50 Seg Neutrophils % 49.2 % (40.0-70.0) 03/04/18 08:50 Seg Neutrophils # 2.6 K/mm3 (1.8-7.7) 03/04/18 08:50 PT 13.0 Sec. (12.2-14.9) 03/01/18 04:55 INR 0.94 (0.87-1.13) 03/01/18 04:55 APTT 24.9 Sec. (24.2-36.6) 03/01/18 04:55 D-Dimer 460 ng/mlDDU (0-234) H 03/01/18 04:55 Sodium 136 mmol/L (137-145) L 03/02/18 04:59 Potassium 4.9 mmol/L (3.6-5.0) D 03/02/18 04:59 Chloride 96.4 mmol/L (98-107) L 03/02/18 04:59 Carbon Dioxide 26 mmol/L (22-30) 03/02/18 04:59 Anion Gap 19 mmol/L 03/02/18 04:59 BUN 15 mg/dL (7-17) 03/02/18 04:59 Creatinine 0.8 mg/dL (0.7-1.2) 03/02/18 04:59 Estimated GFR > 60 ml/min 03/02/18 04:59 BUN/Creatinine Ratio 19 % 03/02/18 04:59 Glucose 377 mg/dL (65-100) H 03/02/18 04:59 POC Glucose 187 (70-105) H 03/05/18 08:00 Calcium 9.7 mg/dL (8.4-10.2) 03/02/18 04:59 Magnesium 1.70 mg/dL (1.7-2.3) 03/01/18 04:55 Total Bilirubin 0.20 mg/dL (0.1-1.2) 03/02/18 04:59 AST 13 units/L (5-40) 03/02/18 04:59 ALT 15 units/L (7-56) 03/02/18 04:59 Alkaline Phosphatase 99 units/L (35-129) 03/02/18 04:59 Troponin T < 0.010 ng/mL (0.00-0.029) 03/01/18 04:55 NT-Pro-B Natriuret Pep 67.52 pg/mL (0-900) 03/01/18 04:55 Total Protein 7.3 g/dL (6.3-8.2) 03/02/18 04:59 Albumin 3.8 g/dL (3.9-5) L 03/02/18 04:59 Albumin/Globulin Ratio 1.1 % 03/02/18 04:59
--- NOTE | 2018-03-05 09:45 | XRay Report ---
AP CHEST: HISTORY: Congestion AP view of the chest demonstrates a normal mediastinal and cardiac contour with clear lungs and normal bony and soft tissue structures. IMPRESSION: Unremarkable AP chest.
[2018-03-05] MEDS: SOLU-Medrol IV SCH ×3 (10:30→22:09)
[2018-03-05] MEDS: ZESTRIL PO SCH (10:32)
[2018-03-05] MEDS: LEVAQUIN PO SCH (10:32)
[2018-03-05] MEDS: LOVENOX SUB-Q SCH (10:32)
[2018-03-05] MEDS: HCTZ PO SCH (10:32)
[2018-03-05] MEDS ORDERED: BENADRYL PO PRN (12:54)
[2018-03-06] MEDS: SOLU-Medrol IV SCH (06:14)
[2018-03-06 06:47] LABS: Hematocrit 41.3 % (30.3-42.9); Hemoglobin 13.7 gm/dl (10.1-14.3); Mean Corpuscular HGB Conc 33 % (30-34); Mean Corpuscular Hemoglobin 29 pg (28-32); Mean Corpuscular Volume 86 fl (79-97); Platelet Count 172 K/mm3 (140-440); Red Blood Count 4.82 M/mm3 (3.65-5.03); Red Cell Distribution Width 13.6 % (13.2-15.2)
[2018-03-06 07:17] LABS: BUN/Creatinine Ratio 24; Blood Urea Nitrogen 19 mg/dL (7-17); Calcium 9.4 mg/dL (8.4-10.2); Hemolysis Index 2
[2018-03-06] MEDS: DUONEB *Not for PRN Use IH SCH ×2 (07:56→13:00)
[2018-03-06] MEDS: PULMICORT IH SCH (07:56)
[2018-03-06] MEDS: HumaLOG SUB-Q SCH ×2 (08:53→13:18)
[2018-03-06 09:05] LABS: Basophils % (Manual) 0 % (0.0-1.8); Eosinophils % (Manual) 0 % (0.0-4.3); Total Cells Counted 100
[2018-03-06 09:10] LABS: Platelet Estimate Cons; RBC Morphology Normal
[2018-03-06] MEDS: LOVENOX SUB-Q SCH (09:12)
[2018-03-06] MEDS: LEVAQUIN PO SCH (09:12)
[2018-03-06] MEDS: HCTZ PO SCH (09:13)
[2018-03-06] MEDS: SODIUM CHLORIDE FLUSH SYRINGE 10 ML IV SCH (09:13)
[2018-03-06] MEDS: GLUCOPHAGE PO SCH (09:13)
[2018-03-06] MEDS ORDERED: NORVASC PO SCH (10:00)
--- NOTE | 2018-03-06 11:10 | Discharge Summary ---
Providers - Providers Date of Admission: 03/01/18 10:42 Attending physician: AUGUSTINE MARIA MD Primary care physician: DIMITRIOS KINSEY Hospitalization Reason for admission: asthma exacerbation, DM2 Condition: Stable Hospital course: 53-year-old female with medical history significant for asthma, hypertension and diabetes presented for the complaints of shortness of breath. Patient was admitted and treated appropriately for Asthma exacerbation and discharged home in a stable condition. Appropriate medication scripts were given at the time of discharge. Comorbidities were treated appropriately. Patient was saturating wel on room air at the time of discharge. Disposition: DC-01 TO HOME OR SELFCARE Time spent for discharge: 32 minutes - Discharge Diagnoses (1) Asthma exacerbation Status: Acute Qualifiers: Asthma severity: moderate Asthma persistence: persistent Qualified Code(s ): J45.41 - Moderate persistent asthma with (acute) exacerbation (2) Diabetes 1.5, managed as type 2 Status: Acute (3) Morbid obesity Status: Acute Core Measure Documentation - Palliative Care Palliative Care/ Comfort Measures: Not Applicable - Core Measures Any of the following diagnoses?: none Exam - Physical Exam Narrative exam: Not in cardiopulmonary distress. The patient is morbidly obese. Vital signs as documented. Head exam is unremarkable. No scleral icterus . Neck is without jugular venous distension, thyromegaly, or carotid bruits. Lungs significant for scattered wheezing. Cardiac exam reveals regular rate and Rhythm. First and second heart sounds normal. No murmurs, rubs or gallops. Abdominal exam reveals normal bowel sounds, no masses, no organomegaly and no aortic enlargement. Extremities are nonedematous and both femoral and pedal pulses are normal. DIRECTOR [place]: Alert and oriented 3. No focal weakness. - Constitutional Vitals: Temp Pulse Resp BP Pulse Ox 97.7 F 78 20 121/57 96 03/05/18 23:56 03/06/18 09:13 03/06/18 08:11 03/06/18 09:13 03/05/18 23:56 Plan Activity: no restrictions Weight Bearing Status: Full Weight Bearing Diet: diabetic Follow up with: DIMITRIOS KINSEY MD [Primary Care Provider] - 7 Days Prescriptions: ALBUTEROL Inhaler(NF) [VENTOLIN Inhaler(NF)] 1 puff IH Q4H PRN #1 can PRN Reason: Dyspnea amLODIPine [Norvasc] 10 mg PO DAILY #30 tab hydroCHLOROthiazide [HCTZ] 25 mg PO QDAY #30 tablet levoFLOXacin [Levaquin TAB] 750 mg PO DAILY #5 tablet Prednisone [predniSONE 10 mg (6-Day Pack, 21 Tabs)] 10 mg PO .TAPER #1 tab.ds.pk
[2018-03-06 14:00] VITALS: BP 154/93
== END 2018-03-06 15:50 | disposition home or self-care (01) | DRG 202 ==
LOC: ED 22:30 → 3A 03-01 10:42
PROVIDERS: ADMIT Family Medicine; ATTEND Internal Medicine
PROC: 3E0234Z Introduction of Serum, Toxoid and Vaccine into Muscle, Percutaneous Approach (ICD-10-PCS; principal; 2018-03-02)
DX: J45.41 Moderate persistent asthma with (acute) exacerbation (principal); J44.1 Chronic obstructive pulmonary disease with (acute) exacerbation; J44.0 Chronic obstructive pulmonary disease with (acute) lower respiratory infection; J20.9 Acute bronchitis, unspecified; I10 Essential (primary) hypertension; E66.01 Morbid (severe) obesity due to excess calories; Z90.710 Acquired absence of both cervix and uterus; Z82.5 Family history of asthma and other chronic lower respiratory diseases; Z68.39 Body mass index [BMI] 39.0-39.9, adult; Z79.84 Long term (current) use of oral hypoglycemic drugs; Z82.49 Family history of ischemic heart disease and other diseases of the circulatory system; Z71.3 Dietary counseling and surveillance; Z23 Encounter for immunization; E11.65 Type 2 diabetes mellitus with hyperglycemia
CPT/HCPCS: 36415; 71045; 71046; 71275; 80048; 80053; 82962; 83735; 83880; 84484; 85007; 85025; 85379; 85610; 85730; 90732; 93005; 93010; 94640; 94668; 96365; 96372; 96375; J1100; J1650; J1815; J1956; J2405; J2930; J3475; Q9967